=== PATIENT | male | born 1985 | race Hispanic/Latino ===

== ENCOUNTER 2018-01-27 22:11 | Inpatient (IN) | payer BC, OTHER ==
[~2018-01-27] VITALS: Ht 170.2 cm; Wt 93.0 kg
[2018-01-27 22:51] LABS: APPEARANCE,URINE Clear (CLEAR); BILIRUBIN,URINE Negative (NEGATIVE); COLOR,URINE Dark Yellow (YELLOW); GLUCOSE, URINE (UA) Negative (NEGATIVE); KETONES,URINE Trace mg/dL (NEGATIVE); LEUKOCYTE ESTERASE ,URINE Trace (NEGATIVE); NITRATE,URINE Negative (NEGATIVE); OCCULT BLOOD,URINE Trace (NEGATIVE); PH,URINE 5.5 (5.0-8.0); PROTEIN,URINE Trace (NEGATIVE); UROBILINOGEN,URINE 0.2 mg/dL (0.2-1.0)
[2018-01-27] MEDS ORDERED: ONDANSETRON HCL 4 MG/2 ML VIAL ONE (22:57)
[2018-01-27] MEDS ORDERED: SODIUM CHLORIDE 0.9% 1000ML 1,000 ML IV ONE (22:57)
[2018-01-27 22:59] LABS: BACTERIA,URINE None Seen /HPF (None Seen); RBC,URINE 0-1 /HPF (0-1); SQUAMOUS EPITHELIAL CELL,UR Moderate /HPF (0-2)
[2018-01-27] MEDS ORDERED: ACETAMINOPHEN 325 MG TAB ONE (23:07)
[2018-01-27 23:10] LABS: BASOPHILS % (AUTO) 0.3 % (0.0-5.0); EOSINOPHILS % (AUTO) 0.4 % (0.0-8.0); HEMATOCRIT 47.4 % (42-54); LYMPHOCYTES % (AUTO) 5.8 % (21.0-51.0); MEAN CORPUSCULAR HEMOGLOBIN 28.5 pg (27.0-33.0); MEAN CORPUSCULAR HGB CONC 33.9 g/dL (32.0-36.0); MONOCYTES % (AUTO) 4.8 % (3.0-13.0); NEUTROPHILS % (AUTO) 88.7 % (40.0-77.0); PLATELET COUNT (AUTO) 319 K/uL (130-400); RED BLOOD CELL COUNT(AUTO) 5.64 MIL/uL (4.50-6.20); RED CELL DISTRIBUTION WIDTH 12.9 % (11.0-15.5); WHITE BLOOD COUNT (AUTO) 12.6 K/uL (4.8-10.8)
[2018-01-27 23:19] LABS: CREATININE 1.3 mg/dL (0.5-1.5); POTASSIUM 3.7 mmol/L (3.5-5.1)
[2018-01-27 23:27] LABS: ALBUMIN 3.6 g/dL (3.5-5.0); BILIRUBIN,TOTAL 0.5 mg/dL (0.2-1.0); INR 1.02 (0.85-1.15); PARTIAL THROMBOPLASTIN TIME 29.6 SEC (26.3-35.5); PROTHROMBIN TIME 10.7 SEC (9.6-11.6); TOTAL PROTEIN, SERUM 7.1 g/dL (6.0-8.3)
[2018-01-27] MEDS ORDERED: SODIUM CHLORIDE 0.9% 1000ML 2,000 ML IV ONE (23:45)
[2018-01-28] MEDS ORDERED: IOHEXOL-350 75 ML VIAL IV ONE (00:31)
[2018-01-28] MEDS ORDERED: LORAZEPAM 2 MG/ML 1 ML VIAL ONE (00:40)
[2018-01-28] MEDS ORDERED: ACETAMINOPHEN EXTRA STRENGTH 500 MG TABLET ONE (02:55)
[2018-01-28] MEDS ORDERED: ZOSYN 3.375GM+NS 50ML 50 ML IV ONE ×2 (03:51→10:48)
[2018-01-28] MEDS ORDERED: SODIUM CHLORIDE 0.9% 50 ML IV ONE ×2 (03:52→10:49)
[2018-01-28] MEDS ORDERED: ONDANSETRON HCL 4 MG/2 ML VIAL IVP PRN (04:45)
[2018-01-28] MEDS ORDERED: ACETAMINOPHEN 325 MG TAB PO PRN (04:45)
[2018-01-28] MEDS ORDERED: SODIUM CHLORIDE 0.9% 1000ML 1,000 ML IV ONE (05:38)
[2018-01-28] MEDS ORDERED: ONDANSETRON HCL 4 MG/2 ML VIAL ONE (08:47)
[2018-01-28] MEDS ORDERED: ACETAMINOPHEN 325 MG TAB ONE (08:54)
[2018-01-28] MEDS ORDERED: IBUPROFEN 600 MG TABLET ONE (12:18)
[2018-01-28] MEDS ORDERED: PROMETHAZINE HCL 25 MG/ML 1ML AMPULE IM ONE (12:18)
[2018-01-28] MEDS: SODIUM CHLORIDE 0.9% 1000ML 1,000 ML IV SCH ×2 (12:30→15:36)
[2018-01-28 15:11] VITALS: BP 102/64
[2018-01-28] MEDS: WATER FOR INJECTION,STERILE 20 ML VIAL IJ SCH ×2 (16:00→20:59)
[2018-01-28] MEDS ORDERED: PIPERACILLIN SODIUM/TAZOBACTAM 3.375 GM VIAL IV SCH ×2 (16:00→23:00)
[2018-01-28] MEDS ORDERED: PROMETHAZINE HCL 25 MG/ML 1ML AMPULE IM PRN (16:30)
[2018-01-28] MEDS ORDERED: IBUPROFEN 600 MG TABLET PO PRN (16:30)
[2018-01-28 19:20] VITALS: BP 116/73
[2018-01-28] MEDS: ZOSYN 3.375GM+NS 50ML 50 ML IV SCH (22:58)
[2018-01-28 23:10] VITALS: BP 111/70
[2018-01-29 03:56] VITALS: BP 102/69
[2018-01-29 05:01] LABS: HEMATOCRIT 41.4 % (42-54); MEAN CORPUSCULAR HEMOGLOBIN 29.1 pg (27.0-33.0); MEAN CORPUSCULAR HGB CONC 34.5 g/dL (32.0-36.0); MEAN CORPUSCULAR VOLUME 84.2 fL (79-99); PLATELET COUNT (AUTO) 262 K/uL (130-400); RED BLOOD CELL COUNT(AUTO) 4.92 MIL/uL (4.50-6.20); RED CELL DISTRIBUTION WIDTH 13.2 % (11.0-15.5); WHITE BLOOD COUNT (AUTO) 10.2 K/uL (4.8-10.8)
[2018-01-29 05:17] LABS: ALBUMIN 2.7 g/dL (3.5-5.0); BILIRUBIN,TOTAL 0.4 mg/dL (0.2-1.0); CREATININE 1.1 mg/dL (0.5-1.5); POTASSIUM 3.6 mmol/L (3.5-5.1); TOTAL PROTEIN, SERUM 6.2 g/dL (6.0-8.3)
[2018-01-29 06:01] LABS: BAND NEUTROPHILS % (MANUAL) 23 % (0-2); BASOPHILS % (MANUAL) 1 % (0-2); EOSINOPHILS % (MANUAL) 1 % (1-6); LYMPHOCYTES % (MANUAL) 16 % (22-44); MAN.DIFF COMMENT-IMPRESSION MANUAL DIFFERENTIAL; MONOCYTES % (MANUAL) 4 % (2-9); PLATELET MORPHOLOGY COMMENT ADEQUATE; SEGMENTED NEUTROPHILS % 55 % (40-70)
[2018-01-29 08:00] VITALS: BP 114/62
[2018-01-29] MEDS: SODIUM CHLORIDE 0.9% 1000ML 1,000 ML IV SCH ×3 (08:00→20:16)
[2018-01-29] MEDS ORDERED: HYDROCODONE/ACETAMINOPHEN 5/325 MG TAB PO PRN (08:30)
[2018-01-29] MEDS ORDERED: TAMS-1 PO (08:30)
[2018-01-29] MEDS ORDERED: SERT50TA12 PO (08:37)
[2018-01-29] MEDS ORDERED: HALO.5 PO (08:37)
[2018-01-29] MEDS ORDERED: METO50TA18 PO (08:37)
[2018-01-29] MEDS ORDERED: HYDR-4060 PO (08:37)
[2018-01-29] MEDS ORDERED: FURO20TA4 PO (08:37)
[2018-01-29] MEDS ORDERED: MULT-1258 PO (08:37)
[2018-01-29] MEDS ORDERED: ASPI-555 PO (08:37)
[2018-01-29] MEDS ORDERED: HALOPERIDOL 1 MG TABLET PO SCH (09:00)
[2018-01-29] MEDS ORDERED: MULTIVITAMIN WITH MINERALS TABLET PO SCH (09:00)
[2018-01-29] MEDS ORDERED: METOPROLOL TARTRATE 50 MG TAB PO SCH (09:00)
[2018-01-29] MEDS ORDERED: FUROSEMIDE 20 MG TABLET PO SCH (09:00)
[2018-01-29] MEDS ORDERED: ASPIRIN 81MG TAB.CHEW PO SCH (09:00)
[2018-01-29 11:28] VITALS: BP 117/70
[2018-01-29] MEDS: ZOSYN 3.375GM+NS 50ML 50 ML IV SCH (12:21)
[2018-01-29] MEDS: METRONIDAZOLE 500MG/100ML BAG 100 ML IV SCH ×2 (14:38→21:17)
[2018-01-29 15:36] VITALS: BP 117/73
[2018-01-29] MEDS: WATER FOR INJECTION,STERILE 20 ML VIAL IJ SCH (16:00)
[2018-01-29] MEDS: LEVOFLOXACIN 500 MG/D5W 100 ML 100 ML IV SCH (16:11)
[2018-01-29 19:25] VITALS: BP 111/76
[2018-01-29] MEDS ORDERED: TAMSULOSIN HCL 0.4 MG CAP.ER.24H PO SCH (21:00)
[2018-01-29] MEDS ORDERED: SERTRALINE HCL 50 MG TABLET PO SCH (21:00)
[2018-01-29 23:05] VITALS: BP 117/75
[2018-01-30 03:36] VITALS: BP 115/71
[2018-01-30] MEDS: WATER FOR INJECTION,STERILE 20 ML VIAL IJ SCH (03:39)
[2018-01-30 04:54] LABS: POTASSIUM 3.7 mmol/L (3.5-5.1)
[2018-01-30 04:55] LABS: BASOPHILS % (AUTO) 0.5 % (0.0-5.0); EOSINOPHILS % (AUTO) 5.8 % (0.0-8.0); HEMATOCRIT 41.5 % (42-54); LYMPHOCYTES % (AUTO) 32.2 % (21.0-51.0); MEAN CORPUSCULAR HEMOGLOBIN 28.3 pg (27.0-33.0); MEAN CORPUSCULAR HGB CONC 33.7 g/dL (32.0-36.0); MEAN CORPUSCULAR VOLUME 83.8 fL (79-99); MONOCYTES % (AUTO) 10.6 % (3.0-13.0); NEUTROPHILS % (AUTO) 50.9 % (40.0-77.0); PLATELET COUNT (AUTO) 248 K/uL (130-400); RED BLOOD CELL COUNT(AUTO) 4.95 MIL/uL (4.50-6.20); RED CELL DISTRIBUTION WIDTH 13.1 % (11.0-15.5); WHITE BLOOD COUNT (AUTO) 7.3 K/uL (4.8-10.8)
[2018-01-30] MEDS: METRONIDAZOLE 500MG/100ML BAG 100 ML IV SCH ×2 (06:26→14:00)
[2018-01-30] MEDS: SODIUM CHLORIDE 0.9% 1000ML 1,000 ML IV SCH (06:26)
[2018-01-30 08:00] VITALS: BP 104/74
[2018-01-30 11:00] VITALS: BP 107/57
[2018-01-30] MEDS: LEVOFLOXACIN 500 MG/D5W 100 ML 100 ML IV SCH (12:30)
[2018-01-30] MEDS ORDERED: METR500T PO (14:17)
[2018-01-30] MEDS ORDERED: LEVO500T2 PO (14:17)
== END 2018-01-30 15:59 | disposition home or self-care (01) | DRG 872 ==
LOC: EDH 22:11 → EDHIP 01-28 03:45 → 4CH 01-28 14:44
PROVIDERS: ADMIT Hospitalist; ATTEND Hospitalist
DX: A41.9 Sepsis, unspecified organism (principal); K52.9 Noninfective gastroenteritis and colitis, unspecified
CPT/HCPCS: 36415; 71046; 74177; 80048; 80053; 81001; 83605; 83690; 84484; 85025; 85610; 85730; 87040; 87046; 87088; 87205; 87324; 93005; 99291; J1956; J2060; J2405; J2543; J2550; J3490; J7030; Q9967